=== PATIENT | male | born 1970 | race Caucasian/White ===

== ENCOUNTER 2017-08-13 13:28 | Inpatient (IN) | payer OTHER ==
[2017-08-13 15:45] VITALS: BMI 27.0
--- NOTE | 2017-08-13 17:00 | HP ---
CIWA Score - CIWA Score Nausea/Vomitin-Mild Nausea/No Vomiting Muscle Tremors: 4-Moderate,w/Arms Extend Anxiety: 4-Mod. Anxious/Guarded Agitation: 4-Moderately Restless Paroxysmal Sweats: 1-Minimal Palms Moist Orientation: 0-Oriented Tacttile Disturbances: 0-None Auditory Disturbances: 0-None Visual Disturbances: 0-None Headache: 0-None Present CIWA-Ar Total Score: 14 Admission ROS BHS - HPI Chief Complaint: WITHDRAWAL SX ALCOHOL INTOXICATED "TWO WEEKS AGO", TREATED AT [facility], LEFT FORE HEAD STITCHES REMOVED 08/10/17 RECEIVED LIBRIUM Allergies/Adverse Reactions: Allergies Allergy/AdvReac Type Severity Reaction Status Date / Time No Known Allergies Allergy Verified 08/13/17 17:06 History of Present Illness: 47 YEARS OLD MALE WITH LONG HISTORY OF ALCOHOL DEPENDENCE, HAS HYPERTENSION AND BIPOLAR II IS ADMITTED TO DETOX Exam Limitations: No Limitations - Ebola screening Have you traveled outside of the country in the last 21 days: No Have you had contact with anyone from an Ebola affected area: No Have you been sick,other than usual withdrawal symptoms: No Do you have a fever: No - Review of Systems Constitutional: Changes in sleep, Weight Stable EENT: reports: No Symptoms Reported Respiratory: reports: No Symptoms reported Cardiac: reports: No Symptoms Reported GI: reports: Nausea, Poor Fluid Intake, Abdominal cramping : reports: No Symptoms Reported Musculoskeletal: reports: Back Pain (TRAUMA X "YEARS"), Joint Pain, Muscle Pain Integumentary: reports: No Symptoms Reported Neuro: reports: Seizure (2012 ALCOHOL WITHDRAWAL RELATED), Tremors Endocrine: reports: No Symptoms Reported Hematology: reports: No Symptoms Reported Psychiatric: reports: Judgement Intact, Orientated x3, Anxious, Depressed Other Systems: Reviewed and Negative Patient History - Patient Medical History Hx Anemia: No Hx Asthma: No Hx Chronic Obstructive Pulmonary Disease (COPD): No Hx Cancer: No Hx Cardiac Disorders: Yes (A FIB) Hx Congestive Heart Failure: No Hx Hypertension: No Hx Hypercholesterolemia: No Hx Pacemaker: No HX Cerebrovascular Accident: No Hx Seizures: Yes (LAST EPISODE 2011) Hx Dementia: No Hx Diabetes: No Hx Gastrointestinal Disorders: No Hx Liver Disease: No Hx Genitourinary Disorders: No Hx Sexually Transmitted Disorders: No Hx Renal Disease (ESRD): No Hx Thyroid Disease: No Hx Human Immunodeficiency Virus (HIV): No (NEGATIVE HX) Hx Hepatitis C: No Hx Depression: No Hx Suicide Attempt: No Hx Bipolar Disorder: Yes Hx Schizophrenia: No - Patient Surgical History Past Surgical History: Yes Hx Neurologic Surgery: No Hx Cataract Extraction: No Hx Cardiac Surgery: No Hx Lung Surgery: Yes (fx RIGHT ribs with pnuemothorax s/p RIGHT chest tube) Hx Breast Surgery: No Hx Breast Biopsy: No Hx Abdominal Surgery: No Hx Appendectomy: No Hx Cholecystectomy: No Hx Genitourinary Surgery: No Hx Orthopedic Surgery: No Anesthesia Reaction: No - PPD History Previous Implant?: Yes Documented Results: Negative w/o proof Implanted On Prior [facility] Admission?: Yes Date: 08/11/15 Results: 0 MM PPD to be Administered?: Yes - Smoking Cessation Smoking history: Former smoker Have you smoked in the past 12 months: No Aproximately how many cigarettes per day: 0 Cigars Per Day: 2 Hx Chewing Tobacco Use: No Initiated information on smoking cessation: Yes 'Breaking Loose' booklet given: 08/13/17 - Substance & Tx. History Hx Alcohol Use: Yes Hx Substance Use: No Substance Use Type: Alcohol Hx Substance Use Treatment: Yes (07/05-07/06/16 [facility] - Substances Abused Alcohol Route: Oral Frequency: Daily Age of first use: 16 Date of Last Use: 08/12/17 Alcohol-beer Route: Oral Frequency: Daily Amount used: 8-10 (24 oz.) Age of first use: 17 Date of Last Use: 08/12/17 Family Disease History - Family Disease History Family Disease History: Heart Disease: Father (atrial fibrillation), CA: Mother (lung cancer ), Other: Mother, Brother (alcohol,) Admission Physical Exam S - Vital Signs Vital Signs: Vital Signs - 24 hr 08/13/17 15:43 Temperature 98.1 F Pulse Rate 90 Respiratory 20 Rate Blood Pressure 116/70 - Physical General Appearance: Yes: Appropriately Dressed, Mild Distress, Alcohol on Breath , Tremorous, Irritable, Sweating, Anxious HEENTM: Yes: Hearing grossly Normal, Normal ENT Inspection, Normocephalic, Normal Voice Respiratory: Yes: Chest Non-Tender, Lungs Clear, Normal Breath Sounds, No Respiratory Distress, No Accessory Muscle Use Neck: Yes: Supple, Trachea in good position Breast: Yes: Breasts Symetrical Cardiology: Yes: Regular Rhythm, S1, S2, Tachycardia Abdominal: Yes: Normal Bowel Sounds, Non Tender, Soft Genitourinary: Yes: Within Normal Limits Back: Yes: Normal Inspection, Muscle Spasm Musculoskeletal: Yes: full range of Motion, Gait Steady, Back pain, Muscle Pain Extremities: Yes: Normal Inspection, Normal Range of Motion, Non-Tender, Tremors Neurological: Yes: Fully Oriented, Alert, Motor Strength 5/5, Normal Response, Depressed Affect Integumentary: Yes: Warm Lymphatic: Yes: Within Normal Limits - Diagnostic (1) Alcohol dependence with uncomplicated withdrawal Current Visit: Yes Status: Acute (2) Nicotine dependence Current Visit: Yes Status: Acute Qualifiers: Nicotine product type: cigarettes Substance use status: in withdrawal Qualified Code(s): F17.213 - Nicotine dependence, cigarettes, with withdrawal (3) Hypertension Current Visit: Yes Status: Acute Qualifiers: Hypertension type: essential hypertension Qualified Code(s): I10 - Essential (primary) hypertension (4) Bipolar II disorder Current Visit: Yes Status: Suspected (5) Atrial fibrillation Current Visit: Yes Status: Chronic Qualifiers: Atrial fibrillation type: unspecified Qualified Code(s): I48.91 - Unspecified atrial fibrillation Comment: ASPIRIN (6) Chronic back pain Current Visit: Yes Status: Chronic Qualifiers: Back pain location: low back pain Back pain laterality: bilateral Sciatica presence: without sciatica Qualified Code(s): M54.5 - Low back pain; G89.29 - Other chronic pain [facility] for [facility] of Care: Medically Managed Detox Regimen/Protocol: Librium [facility] Breath Alcohol Content Breath Alcohol Content: 0.224 Urine Drug Screen - Control Is Test Valid: Yes - Results Drug Screen Negative: No Urine Drug Screen Results: THC-Marijuana, BZO-Benzodiazepines
[2017-08-13] MEDS ORDERED: P-EPHED 60MG/TRIPROLIDI 2.5MG TABLET PO PRN (17:23)
[2017-08-13] MEDS ORDERED: ACETAMINOPHEN 325 MG TABLET (FP) PO PRN (17:23)
[2017-08-13] MEDS ORDERED: NICOTINE POLACRILEX 2 MG GUM BC PRN (17:23)
[2017-08-13] MEDS ORDERED: MAGNESIUM HYDROX 2400MG/30ML ORAL SUSPENSION 30 ML CUP PO PRN (17:23)
[2017-08-13] MEDS ORDERED: MAGNESIUM CITRATE 300 ML BOTTLE PO PRN (17:23)
[2017-08-13] MEDS ORDERED: LOPERAMIDE HCL 2 MG CAPSULE PO PRN (17:23)
[2017-08-13] MEDS ORDERED: MAG HYDROX/AL HYDROX/SIMETH 30 ML UNIT-DOSE CUP PO PRN (17:23)
[2017-08-13] MEDS ORDERED: MENTHOL/PHENOL 1 EACH UD MM PRN (17:23)
[2017-08-13] MEDS ORDERED: guaiFENesin/D-METHORPHAN HB 10 ML UNIT-DOSE CUPS PO PRN (17:23)
[2017-08-13] MEDS ORDERED: chlordiazePOXIDE HCL 25 MG CAPSULE PO PRN (17:23)
[2017-08-13] MEDS ORDERED: chlordiazePOXIDE HCL 25 MG CAPSULE PO ONE (18:30)
[2017-08-13] MEDS: BACITRACIN 0.9 GM PACKET TP SCH (22:31)
[2017-08-13] MEDS: METHOCARBAMOL 750 MG TABLET PO SCH (22:32)
[2017-08-13] MEDS: THIAMINE HCL 100 MG TABLET (FP) PO SCH (22:32)
[2017-08-13] MEDS: chlordiazePOXIDE HCL 25 MG CAPSULE PO SCH (22:32)
[2017-08-13] MEDS: diphenhydrAMINE HCL 50 MG CAPSULE PO PRN (22:34)
[2017-08-13 23:23] LABS: URINE APPEARANCE CLEAR; URINE BILIRUBIN NEGATIVE (NEGATIVE); URINE BLOOD NEGATIVE (NEGATIVE); URINE COLOR STRAW; URINE GLUCOSE (UA) NEGATIVE (NEGATIVE); URINE KETONE NEGATIVE (NEGATIVE); URINE LEUK ESTERASE NEGATIVE (NEGATIVE); URINE NITRITE NEGATIVE (NEGATIVE); URINE PROTEIN NEGATIVE (NEGATIVE); URINE UROBILINOGEN NEGATIVE mg/dL (0.2-1.0)
[2017-08-14] MEDS: METHOCARBAMOL 750 MG TABLET PO SCH ×3 (05:53→22:43)
[2017-08-14] MEDS: chlordiazePOXIDE HCL 25 MG CAPSULE PO SCH ×4 (05:53→22:43)
[2017-08-14] MEDS ORDERED: METOPROLOL SUCCINATE 100 MG TAB.SR.24H (FP) PO SCH (10:00)
[2017-08-14 10:08] LABS: MCHC 33.4 g/dl (32.0-35.9); MEAN CELL VOLUME 101.9 fl (80-96); MEAN PLT VOLUME 9.5 fl (7.5-11.1); PLATELET COUNT 156 K/MM3 (134-434); RDW 14.1 % (11.9-15.9); WHITE BLOOD COUNT 4.6 K/mm3 (4.0-10.0)
--- NOTE | 2017-08-14 10:17 | CONSULT ---
[facility] Psychiatric Consult - Data Date of interview: 08/14/17 Admission source: [facility] Identifying data: Kaylah is 47 years old male with no psychiatric hospitalization history intoxicated with: Alcoho, Xanax nd Nicotine Substance Abuse History: - Smoking Cessation. Smoking history: Former smoker. Have you smoked in the past 12 months: No. Aproximately how many cigarettes per day: 0. Cigars Per Day: 2. Hx Chewing Tobacco Use: No. Initiated information on smoking cessation: Yes. 'Breaking Loose' booklet given: . - Substance & Tx. History. Hx Alcohol Use: Yes. Hx Substance Use: No. Substance Use Type: Alcohol. Hx Substance Use Treatment: Yes (07/05-07/06/16 [facility] [place] - Substances Abused. Alcohol. Route: Oral. Frequency: Daily. Age of first use: 16. Date of Last Use: 08/12/17. Alcohol-beer. Route: Oral. Frequency: Daily. Amount used: 8-10 (24 oz.). Age of first use: 17. Date of Last Use: 08/12/17 Medical History: HTN, A.Fib Hisotyr, Right Hip injury Psychiatric History: Patient reprot to carry Bipoloar disorder, reports taqkingn prior to admission: Seroquel 200mg po qhs. Remeron 30mg po qhs. Buspar 15mg po tids Physical/Sexual Abuse/Trauma History: Denies Additional Comment: Seroquel 200mg po qhs. Remeron 30mg po qhs. Buspar 15mg po tids Mental Status Exam - Mental Status Exam Alert and Oriented to: Person Cognitive Function: Fair Patient Appearance: Unkempt Mood: Apprehensive Affect: Mood Congruent Patient Behavior: Cooperative Speech Pattern: Appropriate Voice Loudness: Normal Thought Process: Goal Oriented Thought Disorder: Being Controlled Hallucinations: Denies Suicidal Ideation: Denies Homicidal Ideation: Denies Insight/Judgement: Fair Sleep: Difficulty falling asleep Appetite: Weight gain Muscle strength/Tone: Normal Gait/Station: Normal Additional Comments: Seroquel 200mg po qhs. Remeron 30mg po qhs. Buspar 15mg po tids Psychiatric Findings - Problem List ([place] 1, 2,3) (1) Alcohol dependence with uncomplicated withdrawal Current Visit: Yes Status: Acute (2) Nicotine dependence Current Visit: Yes Status: Acute Qualifiers: Nicotine product type: cigarettes Substance use status: in withdrawal Qualified Code(s): F17.213 - Nicotine dependence, cigarettes, with withdrawal (3) Bipolar II disorder Current Visit: Yes Status: Suspected (4) Benzodiazepine dependence Current Visit: No Status: Acute (5) Drug-induced mood disorder Current Visit: No Status: Acute (6) Substance-induced sleep disorder Current Visit: No Status: Acute (7) Cannabis dependence Current Visit: No Status: Chronic (8) Sedative, hypnotic or anxiolytic dependence with withdrawal, uncomplicated Current Visit: No Status: Chronic - Initial Treatment Plan Initial Treatment Plan: Seroquel 200mg po qhs. Remeron 30mg po qhs. Buspar 15mg po tids
[2017-08-14] MEDS: ASPIRIN 81 MG CHEWABLE TABLETS PO SCH (10:33)
[2017-08-14] MEDS: PRENATAL VITAMINS W/ FOLIC ACID TABLET (FP) PO SCH (10:33)
[2017-08-14 10:34] LABS: ALK PHOS 68 U/L (45-117); ANION GAP 4 (8-16); CALCIUM 9.1 mg/dL (8.5-10.1); CO2 30 mmol/L (21-32); CREATININE 0.8 mg/dL (0.7-1.3); GLUCOSE,RANDOM 93 mg/dL (74-106); SGOT/AST 35 U/L (15-37); SGPT/ALT 55 U/L (12-78); TOT PROT 5.8 g/dl (6.4-8.2)
[2017-08-14] MEDS: NICOTINE 14 MG/24 HOURS TOPICAL PATCH TD SCH (10:34)
--- NOTE | 2017-08-14 10:35 | EKG ---
Test Reason : Blood Pressure : / mmHG Vent. Rate : 132 BPM Atrial Rate : 111 BPM P-R Int : 000 ms QRS Dur : 096 ms QT Int : 320 ms P-R-T Axes : 000 053 057 degrees QTc Int : 474 ms ATRIAL FIBRILLATION WITH RAPID VENTRICULAR RESPONSE INCOMPLETE RIGHT BUNDLE BRANCH BLOCK ABNORMAL ECG NO PREVIOUS ECGS AVAILABLE Confirmed by PARESH MG MD ([id number]) on 08/14/2017 10:34:42 AM Referred By: Confirmed By:PARESH MG MD
--- NOTE | 2017-08-14 12:33 | PN ---
[facility] CIWA - CIWA Score Nausea/Vomitin-No Nausea/No Vomiting Muscle Tremors: 4-Moderate,w/Arms Extend Anxiety: 4-Mod. Anxious/Guarded Agitation: 4-Moderately Restless Paroxysmal Sweats: 1-Minimal Palms Moist Orientation: 0-Oriented Tacttile Disturbances: 3-Moderate Itch/Numb/Burn Auditory Disturbances: 0-None Visual Disturbances: 0-None Headache: 0-None Present CIWA-Ar Total Score: 16 S Progress Note (SOAP) Subjective: ANXIETY,TREMORS,SWEATS,INTERMITTENT SLEEP. Objective: 08/14/17 12:32 Vital Signs Temperature 96.4 F L 08/14/17 09:33 Pulse Rate 97 H 08/14/17 09:33 Respiratory Rate 18 08/14/17 09:33 Blood Pressure 123/79 08/14/17 09:33 O2 Sat by Pulse Oximetry (%) Laboratory Last Values WBC 4.6 K/mm3 (4.0-10.0) D 08/14/17 07:00 RBC 4.23 M/mm3 (4.00-5.60) 08/14/17 07:00 Hgb 14.4 GM/dL (11.7-16.9) D 08/14/17 07:00 Hct 43.0 % (35.4-49) 08/14/17 07:00 MCV 101.9 fl (80-96) H 08/14/17 07:00 MCH 34.0 pg (25.7-33.7) H 08/14/17 07:00 MCHC 33.4 g/dl (32.0-35.9) 08/14/17 07:00 RDW 14.1 % (11.9-15.9) 08/14/17 07:00 Plt Count 156 K/MM3 (134-434) D 08/14/17 07:00 MPV 9.5 fl (7.5-11.1) 08/14/17 07:00 Sodium 141 mmol/L (136-145) 08/14/17 07:00 Potassium 3.9 mmol/L (3.5-5.1) 08/14/17 07:00 Chloride 107 mmol/L (98-107) 08/14/17 07:00 Carbon Dioxide 30 mmol/L (21-32) 08/14/17 07:00 Anion Gap 4 (8-16) L 08/14/17 07:00 BUN 9 mg/dL (7-18) 08/14/17 07:00 Creatinine 0.8 mg/dL (0.7-1.3) 08/14/17 07:00 Creat Clearance w eGFR > 60 (>60) 08/14/17 07:00 Random Glucose 93 mg/dL (74-106) 08/14/17 07:00 Calcium 9.1 mg/dL (8.5-10.1) 08/14/17 07:00 Total Bilirubin 1.0 mg/dL (0.2-1.0) D 08/14/17 07:00 AST 35 U/L (15-37) 08/14/17 07:00 ALT 55 U/L (12-78) D 08/14/17 07:00 Alkaline Phosphatase 68 U/L (45-117) 08/14/17 07:00 Total Protein 5.8 g/dl (6.4-8.2) L 08/14/17 07:00 Albumin 3.0 g/dl (3.4-5.0) L 08/14/17 07:00 Urine Color Straw 08/13/17 22:35 Urine Appearance Clear 08/13/17 22:35 Urine pH 6.0 (5.0-8.0) 08/13/17 22:35 Ur Specific [place] <= 1.005 (1.005-1.025) 08/13/17 22:35 Urine Protein Negative (NEGATIVE) 08/13/17 22:35 Urine Glucose (UA) Negative (NEGATIVE) 08/13/17 22:35 Urine Ketones Negative (NEGATIVE) 08/13/17 22:35 Urine Blood Negative (NEGATIVE) 08/13/17 22:35 Urine Nitrite Negative (NEGATIVE) 08/13/17 22:35 Urine Bilirubin Negative (NEGATIVE) 08/13/17 22:35 Urine Urobilinogen Negative mg/dL (0.2-1.0) 08/13/17 22:35 Assessment: 08/14/17 12:32 WITHDRAWAL SX Plan: CONTINUE DETOX
[2017-08-14] MEDS ORDERED: MIRTAZAPINE 30 MG TABLET (FP) PO SCH (22:00)
[2017-08-14] MEDS ORDERED: QUEtiapine FUMARATE 200 MG TABLET PO SCH (22:00)
[2017-08-14] MEDS: BACITRACIN 0.9 GM PACKET TP SCH (22:42)
[2017-08-14] MEDS: METOPROLOL TARTRATE 50 MG TABLET (FP) PO SCH (22:42)
[2017-08-14] MEDS: THIAMINE HCL 100 MG TABLET (FP) PO SCH (22:42)
[2017-08-14] MEDS: diphenhydrAMINE HCL 50 MG CAPSULE PO PRN (22:43)
[2017-08-15] MEDS: hydrOXYzine PAMOATE 50 MG CAPSULE (FP) PO PRN ×2 (02:33→10:37)
[2017-08-15] MEDS: METHOCARBAMOL 750 MG TABLET PO SCH (05:15)
[2017-08-15] MEDS: chlordiazePOXIDE HCL 25 MG CAPSULE PO SCH ×2 (05:15→10:35)
[2017-08-15 09:49] VITALS: BP 101/70; PULSE 68; TEMP 98.7
[2017-08-15] MEDS: ASPIRIN 81 MG CHEWABLE TABLETS PO SCH (10:34)
[2017-08-15] MEDS: PRENATAL VITAMINS W/ FOLIC ACID TABLET (FP) PO SCH (10:34)
[2017-08-15] MEDS: METOPROLOL TARTRATE 50 MG TABLET (FP) PO SCH (10:35)
[2017-08-15] MEDS: NICOTINE 14 MG/24 HOURS TOPICAL PATCH TD SCH (10:36)
--- NOTE | 2017-08-15 12:05 | DS ---
[facility] Detox Discharge Summary Admission Date: 08/13/17 Discharge Date: 08/15/17 - History Present History: Alcohol Dependence Additional Comments: PT DECLINED TO COMPLETE DETOX STATING "I'M GOING TO [facility] NOW". Pertinent Past History: HX SEIZURES HX ATRIAL FIB HYPERTENSION - Physical Exam Results Vital Signs: Vital Signs Temperature 98.7 F 08/15/17 09:49 Pulse Rate 68 08/15/17 09:49 Respiratory Rate 20 08/15/17 09:49 Blood Pressure 101/70 08/15/17 09:49 O2 Sat by Pulse Oximetry (%) Pertinent Admission Physical Exam Findings: WITHDRAWAL SX Laboratory Last Values WBC 4.6 K/mm3 (4.0-10.0) D 08/14/17 07:00 RBC 4.23 M/mm3 (4.00-5.60) 08/14/17 07:00 Hgb 14.4 GM/dL (11.7-16.9) D 08/14/17 07:00 Hct 43.0 % (35.4-49) 08/14/17 07:00 MCV 101.9 fl (80-96) H 08/14/17 07:00 MCH 34.0 pg (25.7-33.7) H 08/14/17 07:00 MCHC 33.4 g/dl (32.0-35.9) 08/14/17 07:00 RDW 14.1 % (11.9-15.9) 08/14/17 07:00 Plt Count 156 K/MM3 (134-434) D 08/14/17 07:00 MPV 9.5 fl (7.5-11.1) 08/14/17 07:00 Sodium 141 mmol/L (136-145) 08/14/17 07:00 Potassium 3.9 mmol/L (3.5-5.1) 08/14/17 07:00 Chloride 107 mmol/L (98-107) 08/14/17 07:00 Carbon Dioxide 30 mmol/L (21-32) 08/14/17 07:00 Anion Gap 4 (8-16) L 08/14/17 07:00 BUN 9 mg/dL (7-18) 08/14/17 07:00 Creatinine 0.8 mg/dL (0.7-1.3) 08/14/17 07:00 Creat Clearance w eGFR > 60 (>60) 08/14/17 07:00 Random Glucose 93 mg/dL (74-106) 08/14/17 07:00 Calcium 9.1 mg/dL (8.5-10.1) 08/14/17 07:00 Total Bilirubin 1.0 mg/dL (0.2-1.0) D 08/14/17 07:00 AST 35 U/L (15-37) 08/14/17 07:00 ALT 55 U/L (12-78) D 08/14/17 07:00 Alkaline Phosphatase 68 U/L (45-117) 08/14/17 07:00 Total Protein 5.8 g/dl (6.4-8.2) L 08/14/17 07:00 Albumin 3.0 g/dl (3.4-5.0) L 08/14/17 07:00 Urine Color Straw 08/13/17 22:35 Urine Appearance Clear 08/13/17 22:35 Urine pH 6.0 (5.0-8.0) 08/13/17 22:35 Ur Specific [place] <= 1.005 (1.005-1.025) 08/13/17 22:35 Urine Protein Negative (NEGATIVE) 08/13/17 22:35 Urine Glucose (UA) Negative (NEGATIVE) 08/13/17 22:35 Urine Ketones Negative (NEGATIVE) 08/13/17 22:35 Urine Blood Negative (NEGATIVE) 08/13/17 22:35 Urine Nitrite Negative (NEGATIVE) 08/13/17 22:35 Urine Bilirubin Negative (NEGATIVE) 08/13/17 22:35 Urine Urobilinogen Negative mg/dL (0.2-1.0) 08/13/17 22:35 Valproic Acid 5.081 ug/ml (50-100) L 08/14/17 07:00 RPR Titer Nonreactive (NONREACTIVE) 08/14/17 07:00 - Treatment Hospital Course: Discharged Condition Good - Medication Discharge Medications: Ambulatory Orders Aspirin [ASA -] 81 mg PO DAILY #30 tab.chew 10/08/15 Methocarbamol [Robaxin -] 750 mg PO TID 01/29/16 Metoprolol Succinate [Toprol XL -] 100 mg PO DAILY 01/29/16 Quetiapine Fumarate [Seroquel -] 200 mg PO HS #30 tab 03/17/16 Buspirone HCl [Buspar -] 15 mg PO TID #90 tablet 04/26/16 Mirtazapine [Remeron -] 30 mg PO HS #30 tablet 04/26/16 Buspirone HCl [Buspar -] 15 mg PO TID #90 tablet 08/14/17 Mirtazapine [Remeron -] 30 mg PO HS #30 tablet 08/14/17 Quetiapine Fumarate [Seroquel -] 200 mg PO HS #30 tab 08/14/17 - Diagnosis (1) Alcohol dependence with uncomplicated withdrawal Status: Acute (2) Hypertension Status: Chronic Qualifiers: Hypertension type: essential hypertension Qualified Code(s): I10 - Essential (primary) hypertension (3) Nicotine dependence Status: Acute Qualifiers: Nicotine product type: cigarettes Substance use status: in withdrawal Qualified Code(s): F17.213 - Nicotine dependence, cigarettes, with withdrawal (4) Atrial fibrillation Status: Chronic Qualifiers: Atrial fibrillation type: unspecified Qualified Code(s): I48.91 - Unspecified atrial fibrillation (5) Chronic back pain Status: Chronic Qualifiers: Back pain location: low back pain Back pain laterality: bilateral Sciatica presence: without sciatica Qualified Code(s): M54.5 - Low back pain; G89.29 - Other chronic pain - AMA Did Patient Leave Against Medical Advice: Yes (AMA)
[2017-08-15] MEDS ORDERED: chlordiazePOXIDE 5 MG CAPSULE PO SCH (23:00)
[2017-08-16] MEDS ORDERED: chlordiazePOXIDE HCL 10 MG CAPSULE PO SCH (23:00)
== END 2017-08-15 11:17 | disposition left against medical advice (07) | DRG 861 ==
LOC: YASAS 13:28 → Y3N 17:36
PROVIDERS: ADMIT Internal Medicine; ATTEND Internal Medicine
PROC: HZ2ZZZZ Detoxification Services for Substance Abuse Treatment (ICD-10-PCS; principal; 2017-08-13)
DX: G89.29 Other chronic pain (principal); F13.230 Sedative, hypnotic or anxiolytic dependence with withdrawal, uncomplicated; F10.230 Alcohol dependence with withdrawal, uncomplicated; F12.20 Cannabis dependence, uncomplicated; F17.213 Nicotine dependence, cigarettes, with withdrawal; F31.81 Bipolar II disorder; F19.282 Other psychoactive substance dependence with psychoactive substance-induced sleep disorder; I10 Essential (primary) hypertension; I48.91 Unspecified atrial fibrillation; G40.509 Epileptic seizures related to external causes, not intractable, without status epilepticus; M54.5 Low back pain
CPT/HCPCS: 36415; 80053; 80164; 81003; 85027; 86593; 93005; 93010

== ENCOUNTER 2017-12-01 15:08 | Inpatient (IN) | payer OTHER ==
--- NOTE | 2017-12-01 15:26 | HP ---
CIWA Score - CIWA Score Nausea/Vomitin Muscle Tremors: 3 Anxiety: 3 Agitation: 3 Paroxysmal Sweats: 2 Orientation: 0-Oriented Tacttile Disturbances: 2-Mild Itch/Numbness/Burn Auditory Disturbances: 2-Mild Harshness/Frighten Visual Disturbances: 1-Very Mild Sensitivity Headache: 2-Mild CIWA-Ar Total Score: 21 Admission ROS BHS - HPI Chief Complaint: i need help to stop drinking alcohol and xanax Allergies/Adverse Reactions: Allergies Allergy/AdvReac Type Severity Reaction Status Date / Time No Known Allergies Allergy Verified 12/01/17 15:44 History of Present Illness: this 47years old male with alcohol and xanax dependence,seeking detox,last detox [facility] 08/11 syncope alcohol related seizure last 2 years ago history of atrial fibrillation for 4 years on metoprolol 50 mgs po bid and asa 81 mgs longest period of sobriety 2 months anxiety fell from height 8th story in 2011 admitted for 3 months - Ebola screening Have you traveled outside of the country in the last 21 days: No Have you had contact with anyone from an Ebola affected area: No Have you been sick,other than usual withdrawal symptoms: No Do you have a fever: No - Review of Systems Constitutional: Loss of Appetite, Malaise, Night Sweats, Changes in sleep, Weakness EENT: reports: Nose Congestion Respiratory: reports: No Symptoms reported Cardiac: reports: No Symptoms Reported GI: reports: Diarrhea, Nausea, Vomiting, Abdominal cramping : reports: No Symptoms Reported Musculoskeletal: reports: Back Pain, Muscle Pain Integumentary: reports: Dryness Neuro: reports: Headache, Tremors Endocrine: reports: No Symptoms Reported Hematology: reports: No Symptoms Reported Psychiatric: reports: Anxious Patient History - Patient Medical History Hx Anemia: No Hx Asthma: No Hx Chronic Obstructive Pulmonary Disease (COPD): No Hx Cancer: No Hx Cardiac Disorders: Yes (A FIB) Hx Congestive Heart Failure: No Hx Hypertension: No Hx Hypercholesterolemia: No Hx Pacemaker: No HX Cerebrovascular Accident: No Hx Seizures: Yes (LAST EPISODE 2011) Hx Dementia: No Hx Diabetes: No Hx Gastrointestinal Disorders: No Hx Liver Disease: No Hx Genitourinary Disorders: No Hx Sexually Transmitted Disorders: No Hx Renal Disease (ESRD): No Hx Thyroid Disease: No Hx Human Immunodeficiency Virus (HIV): No (NEGATIVE HX last 09/10) Hx Hepatitis C: No Hx Depression: No Hx Suicide Attempt: No Hx Bipolar Disorder: Yes Hx Schizophrenia: No Other Medical History: no suicidal,no homicidal - Patient Surgical History Past Surgical History: Yes Hx Neurologic Surgery: No Hx Cataract Extraction: No Hx Cardiac Surgery: No Hx Lung Surgery: Yes (fx RIGHT ribs with pnuemothorax s/p RIGHT chest tube) Hx Breast Surgery: No Hx Breast Biopsy: No Hx Abdominal Surgery: No Hx Appendectomy: No Hx Cholecystectomy: No Hx Genitourinary Surgery: No Hx Section: No Hx Orthopedic Surgery: No Anesthesia Reaction: No - PPD History Documented Results: Negative w/proof Date: 08/15/17 Results: 0 MM PPD to be Administered?: No - Smoking Cessation Smoking history: Former smoker Have you smoked in the past 12 months: No Aproximately how many cigarettes per day: 0 Cigars Per Day: 2 Hx Chewing Tobacco Use: No Initiated information on smoking cessation: Yes 'Breaking Loose' booklet given: 12/01/17 - Substance & Tx. History Hx Alcohol Use: Yes Hx Substance Use: Yes Substance Use Type: Alcohol, Tranquilizers Hx Substance Use Treatment: Yes ([facility] 09/10) - Substances Abused Alcohol Route: Oral Frequency: Daily Amount used: 10 of 24 ozs of beer Age of first use: 16 Date of Last Use: 12/01/17 Alprazolam (Xanax) Route: Oral Frequency: Daily Amount used: 6 mgs Age of first use: 17 Date of Last Use: 11/30/17 Marijuana/Hashish Route: Smoking Frequency: 1-2 times per week Amount used: 50$ Age of first use: 15 Date of Last Use: 11/29/17 Family Disease History - Family Disease History Family Disease History: Heart Disease: Father (atrial fibrillation), CA: Mother (lung cancer ), Other: Mother, Brother (alcohol,) Admission Physical Exam S - Vital Signs Vital Signs: Vital Signs - 24 hr 12/01/17 15:11 Temperature 95.2 F L Pulse Rate 100 H Respiratory 18 Rate Blood Pressure 132/75 - Physical General Appearance: Yes: Moderate Distress, Tremorous, Irritable, Sweating, Anxious HEENTM: Yes: Normal ENT Inspection, RUB[place], Pharynx Normal Respiratory: Yes: Lungs Clear, Normal Breath Sounds, No Respiratory Distress, Other (s/p pneumothorax right post fell from height) Neck: Yes: Within Normal Limits, Supple, Trachea in good position Breast: Yes: Within Normal Limits Cardiology: Yes: Within Normal Limits, Regular Rhythm, Regular Rate, S1, S2 Abdominal: Yes: Within Normal Limits, Normal Bowel Sounds, Non Tender, Flat, Soft Genitourinary: Yes: Within Normal Limits Back: Yes: Muscle Spasm Musculoskeletal: Yes: Back pain, Muscle Pain Extremities: Yes: Tremors Neurological: Yes: avionics systems repairer II-XII NML intact, Alert, Motor Strength 5/5 Integumentary: Yes: Dry Lymphatic: Yes: Within Normal Limits - Diagnostic (1) Alcohol dependence with uncomplicated withdrawal Current Visit: No Status: Acute (2) Nicotine dependence Current Visit: No Status: Acute Qualifiers: Nicotine product type: cigarettes Substance use status: in withdrawal Qualified Code(s): F17.213 - Nicotine dependence, cigarettes, with withdrawal (3) Atrial fibrillation Current Visit: No Status: Chronic Qualifiers: Atrial fibrillation type: unspecified Qualified Code(s): I48.91 - Unspecified atrial fibrillation Comment: ASPIRIN (4) Chronic back pain Current Visit: No Status: Chronic Qualifiers: Back pain location: low back pain Back pain laterality: bilateral Sciatica presence: without sciatica Qualified Code(s): M54.5 - Low back pain; G89.29 - Other chronic pain; G89.29 - Other chronic pain (5) Uncomplicated sedative, hypnotic or anxiolytic withdrawal Current Visit: Yes Status: Acute (6) Anxiety Current Visit: Yes Status: Acute (7) Fall from height of greater than 3 feet Current Visit: Yes Status: Acute (8) History of head injury Current Visit: Yes Status: Acute (9) Bipolar disorder Current Visit: Yes Status: Acute Cleared for Admission [facility] - Detox or Rehab [facility] Level of Care: Medically Managed Detox Regimen/Protocol: Valium [facility] Breath Alcohol Content Breath Alcohol Content: 0 Urine Drug Screen - Results Drug Screen Negative: No Urine Drug Screen Results: THC-Marijuana, BZO-Benzodiazepines
[2017-12-01] MEDS ORDERED: P-EPHED 60MG/TRIPROLIDI 2.5MG TABLET PO PRN (15:43)
[2017-12-01] MEDS ORDERED: LOPERAMIDE HCL 2 MG CAPSULE PO PRN (15:43)
[2017-12-01] MEDS ORDERED: guaiFENesin/D-METHORPHAN HB 10 ML UNIT-DOSE CUPS PO PRN (15:43)
[2017-12-01] MEDS ORDERED: IBUPROFEN 400 MG TABLET (FP) PO PRN (15:43)
[2017-12-01] MEDS ORDERED: diazePAM 5 MG TABLET PO ONE (15:43)
[2017-12-01] MEDS ORDERED: MAG HYDROX/AL HYDROX/SIMETH 30 ML UNIT-DOSE CUP PO PRN (15:43)
[2017-12-01] MEDS ORDERED: MAGNESIUM HYDROX 2400MG/30ML ORAL SUSPENSION 30 ML CUP PO PRN (15:43)
[2017-12-01] MEDS ORDERED: MENTHOL/PHENOL 1 EACH UD MM PRN (15:43)
[2017-12-01] MEDS ORDERED: ACETAMINOPHEN 325 MG TABLET (FP) PO PRN (15:43)
[2017-12-01] MEDS ORDERED: diazePAM 5 MG TABLET PO PRN (15:43)
[2017-12-01] MEDS ORDERED: MAGNESIUM CITRATE 300 ML BOTTLE PO PRN (15:43)
[2017-12-01] MEDS ORDERED: hydrOXYzine PAMOATE 50 MG CAPSULE (FP) PO PRN (15:51)
[2017-12-01] MEDS: diazePAM 5 MG TABLET PO SCH (22:05)
[2017-12-01] MEDS: METHOCARBAMOL 500 MG TABLET PO SCH (22:05)
[2017-12-01] MEDS: THIAMINE HCL 100 MG TABLET (FP) PO SCH (22:05)
[2017-12-01] MEDS: METOPROLOL TARTRATE 50 MG TABLET (FP) PO SCH (22:06)
[2017-12-02] MEDS: diazePAM 5 MG TABLET PO SCH ×3 (06:01→22:09)
[2017-12-02] MEDS: METHOCARBAMOL 500 MG TABLET PO SCH ×2 (06:02→14:32)
[2017-12-02 10:07] LABS: HEMATOCRIT 49.2 % (35.4-49); MCH 32.3 pg (25.7-33.7); MCHC 32.5 g/dl (32.0-35.9); MEAN CELL VOLUME 99.5 fl (80-96); MEAN PLT VOLUME 9.7 fl (7.5-11.1); PLATELET COUNT 228 K/MM3 (134-434); RBC 4.94 M/mm3 (4.00-5.60); RDW 14.3 % (11.9-15.9); WHITE BLOOD COUNT 4.9 K/mm3 (4.0-10.0)
[2017-12-02 10:10] LABS: ALBUMIN 3.3 g/dl (3.4-5.0); ANION GAP 7 (8-16); BILIRUBIN,TOTAL 0.7 mg/dL (0.2-1.0); BLOOD UREA NITROGEN 6 mg/dL (7-18); CALCIUM 8.6 mg/dL (8.5-10.1); CHLORIDE 108 mmol/L (98-107); CO2 26 mmol/L (21-32); CREATININE 0.9 mg/dL (0.7-1.3); GLUCOSE,RANDOM 105 mg/dL (74-106); POTASSIUM 3.8 mmol/L (3.5-5.1); SGOT/AST 33 U/L (15-37); SGPT/ALT 28 U/L (12-78); SODIUM 141 mmol/L (136-145); TOT PROT 6.3 g/dl (6.4-8.2)
[2017-12-02 10:11] LABS: ALK PHOS 74 U/L (45-117)
[2017-12-02] MEDS: ASPIRIN 81 MG CHEWABLE TABLETS PO SCH (10:47)
[2017-12-02] MEDS: PRENATAL VITAMINS W/ FOLIC ACID TABLET (FP) PO SCH (10:47)
[2017-12-02] MEDS: METOPROLOL TARTRATE 50 MG TABLET (FP) PO SCH ×2 (10:47→22:10)
--- NOTE | 2017-12-02 11:33 | PN ---
S CIWA - CIWA Score Nausea/Vomitin Muscle Tremors: 4-Moderate,w/Arms Extend Anxiety: 4-Mod. Anxious/Guarded Agitation: 4-Moderately Restless Paroxysmal Sweats: 3 Orientation: 0-Oriented Tacttile Disturbances: 1-Very Mild Itch/Numbness Auditory Disturbances: 0-None Visual Disturbances: 0-None Headache: 1-Very Mild CIWA-Ar Total Score: 20 BHS Progress Note (SOAP) Subjective: Tremor, chills, sweating, anxious Objective: 12/02/17 11:31 Last Vital Signs Temp Pulse Resp BP Pulse Ox 97.9 F 89 18 104/70 12/02/17 11:03 12/02/17 11:03 12/02/17 11:03 12/02/17 11:03 Laboratory Tests 12/02/17 12/02/17 07:00 07:00 WBC 4.9 RBC 4.94 Hgb 16.0 D Hct 49.2 H MCV 99.5 H MCH 32.3 MCHC 32.5 RDW 14.3 Plt Count 228 D MPV 9.7 Sodium 141 Potassium 3.8 Chloride 108 H Carbon Dioxide 26 Anion Gap 7 L BUN 6 L D Creatinine 0.9 Creat Clearance w eGFR > 60 Random Glucose 105 Calcium 8.6 Total Bilirubin 0.7 D AST 33 ALT 28 D Alkaline Phosphatase 74 Total Protein 6.3 L Albumin 3.3 L Labs noted Assessment: 12/02/17 11:32 Withdrawal symptoms Plan: Continue detox Encouraged to drink more water for hydration
--- NOTE | 2017-12-02 12:33 | CONSULT ---
[facility] Psychiatric Consult - Data Date of interview: 12/02/17 Admission source: [facility] Identifying data: This is one of multiple admissions to [facility] for this 47 y/ o male seeking detox treatment on for alcohol,marihuana and xanax dependence.Patient is in a common-law relationship,no children,domiciled, unemployed and supported by spouse. Substance Abuse History: Confirmed by patient in this interview.See current [facility] report for details : Smoking history: Former smoker. Have you smoked in the past 12 months: No. Aproximately how many cigarettes per day: 0. Cigars Per Day: 2. Hx Chewing Tobacco Use: No. Initiated information on smoking cessation : Yes. 'Breaking Loose' booklet given: 12/01/17. - Substance & Tx. History. Hx Alcohol Use: Yes. Hx Substance Use: Yes. Substance Use Type: Alcohol, Tranquilizers. Hx Substance Use Treatment: Yes ([facility]ente 09/10). - Substances Abused. Alcohol. Route: Oral. Frequency: Daily. Amount used: 10 of 24 ozs of beer. Age of first use: 16. Date of Last Use: 12/01/17. Alprazolam (Xanax). Route: Oral. Frequency: Daily. Amount used: 6 mgs. Age of first use : 17. Date of Last Use: 11/30/17. Marijuana/Hashish. Route: Smoking. Frequency: 1-2 times per week. Amount used: 50$. Age of first use: 15. Date of Last Use: 11/29/17 Medical History: Hypertension and atrial fibrillation.Past history of pneumothorax,coma,fractured ribs from a job-related accident (fall from a seven stories high scaffold) in 2006. Psychiatric History: No reported history of psychiatric hospitalizations.Mr Chacon reports no psychiatric follow up care since the authorities arrested his psychiatrist a few months ago.He used to be prescribed remeron 30 mg/hs + seroquel 200 mg/hs + buspar 15 mg po tid.Has been off these medications " for a while." No history of suicide attempts. Physical/Sexual Abuse/Trauma History: Patient denies history of abuse. Additional Comment: Urine Drug Screen Results: THC-Marijuana, BZO- Benzodiazepines.Noted. Mental Status Exam - Mental Status Exam Alert and Oriented to: Time, Place, Person Cognitive Function: Good Patient Appearance: Unkempt, Disheveled Mood: Nervous, Withdrawn Affect: Mood Congruent, Constricted Patient Behavior: Fatigued, Appropriate, Cooperative Speech Pattern: Clear, Appropriate Voice Loudness: Normal Thought Process: Intact, Goal Oriented Thought Disorder: Not Present Hallucinations: Denies Suicidal Ideation: Denies Homicidal Ideation: Denies Insight/Judgement: Poor Sleep: Poorly, Difficulty falling asleep Appetite: Good Muscle strength/Tone: Normal Gait/Station: Normal Psychiatric Findings - Problem List ([place] 1, 2,3) (1) Alcohol dependence with uncomplicated withdrawal Current Visit: Yes Status: Acute (2) Uncomplicated sedative, hypnotic or anxiolytic withdrawal Current Visit: Yes Status: Acute (3) Cannabis dependence Current Visit: Yes Status: Acute (4) Nicotine dependence Current Visit: Yes Status: Acute Qualifiers: Nicotine product type: cigarettes Substance use status: in withdrawal Qualified Code(s): F17.213 - Nicotine dependence, cigarettes, with withdrawal (5) Drug-induced mood disorder Current Visit: Yes Status: Acute (6) Insomnia Current Visit: Yes Status: Acute - Initial Treatment Plan Initial Treatment Plan: Psychoeducation.Old records revisited.Sleep hygiene discussed.Detoxification in progress.Medications : seroquel 200 mg po hs + remeron 15 mg po hs + buspar 10 mg po tid.Side effects/benefits sre discussed with the patient.Mr Chacon has verbalized his agreement to this careplan.Observation.Medications verified via survey of pharmacy claims and telephone call to [facility] at [phone] (refills issued on 09/27/17 for seroquel,naltrexone,prazosin / last refill for buspar was in July 2017).
--- NOTE | 2017-12-02 12:46 | EKG ---
Test Reason : Blood Pressure : / mmHG Vent. Rate : 094 BPM Atrial Rate : 094 BPM P-R Int : 172 ms QRS Dur : 090 ms QT Int : 368 ms P-R-T Axes : 068 006 053 degrees QTc Int : 460 ms NORMAL SINUS RHYTHM SEPTAL INFARCT , AGE UNDETERMINED ABNORMAL ECG WHEN COMPARED WITH ECG OF 13-AUG-2017 18:33, SINUS RHYTHM HAS REPLACED ATRIAL FIBRILLATION T WAVE VARIATION VENT. RATE HAS DECREASED Confirmed by KAY TONG, FATOUMATA ([id number]) on 12/02/2017 12:46:00 PM Referred By: Confirmed By:FATOUMATA VILLANUEVA MD
[2017-12-02] MEDS: busPIRone HCL 10 MG TABLET (FP) PO SCH ×2 (14:32→22:09)
[2017-12-02] MEDS: QUEtiapine FUMARATE 200 MG TABLET PO SCH (22:09)
[2017-12-02] MEDS: THIAMINE HCL 100 MG TABLET (FP) PO SCH (22:09)
[2017-12-02] MEDS: METHOCARBAMOL 750 MG TAB PO SCH (22:09)
[2017-12-02] MEDS: MIRTAZAPINE 15 MG TABLET (FP) PO SCH (22:09)
[2017-12-03 05:08] LABS: URINE APPEARANCE CLEAR; URINE BLOOD NEGATIVE (NEGATIVE); URINE COLOR YELLOW; URINE GLUCOSE (UA) NEGATIVE (NEGATIVE); URINE KETONE NEGATIVE (NEGATIVE); URINE LEUK ESTERASE NEGATIVE (NEGATIVE); URINE NITRITE NEGATIVE (NEGATIVE); URINE PROTEIN NEGATIVE (NEGATIVE); URINE UROBILINOGEN NEGATIVE mg/dL (0.2-1.0)
[2017-12-03] MEDS: METHOCARBAMOL 750 MG TAB PO SCH ×3 (05:58→22:23)
[2017-12-03] MEDS: busPIRone HCL 10 MG TABLET (FP) PO SCH ×3 (05:58→22:23)
--- NOTE | 2017-12-03 12:12 | PN ---
S CIWA - CIWA Score Nausea/Vomitin-Mild Nausea/No Vomiting Muscle Tremors: 3 Anxiety: 4-Mod. Anxious/Guarded Agitation: 3 Paroxysmal Sweats: 3 Orientation: 0-Oriented Tacttile Disturbances: 1-Very Mild Itch/Numbness Auditory Disturbances: 0-None Visual Disturbances: 0-None Headache: 1-Very Mild CIWA-Ar Total Score: 16 BHS Progress Note (SOAP) Subjective: Nausea, sweating, tremor, chills Objective: 12/03/17 12:10 Last Vital Signs Temp Pulse Resp BP Pulse Ox 96.7 F L 76 16 104/65 12/03/17 10:00 12/03/17 10:00 12/03/17 10:00 12/03/17 10:00 Laboratory Tests 12/02/17 12/02/17 12/02/17 06:30 07:00 07:00 WBC 4.9 RBC 4.94 Hgb 16.0 D Hct 49.2 H MCV 99.5 H MCH 32.3 MCHC 32.5 RDW 14.3 Plt Count 228 D MPV 9.7 Sodium 141 Potassium 3.8 Chloride 108 H Carbon Dioxide 26 Anion Gap 7 L BUN 6 L D Creatinine 0.9 Creat Clearance w eGFR > 60 Random Glucose 105 Calcium 8.6 Total Bilirubin 0.7 D AST 33 ALT 28 D Alkaline Phosphatase 74 Total Protein 6.3 L Albumin 3.3 L Urine Color Yellow Urine Appearance Clear Urine pH 5.0 Ur Specific [place] 1.021 Urine Protein Negative Urine Glucose (UA) Negative Urine Ketones Negative Urine Blood Negative Urine Nitrite Negative Urine Bilirubin 2.0 Urine Urobilinogen Negative Ur Leukocyte Esterase Negative RPR Titer HIV 1&2 Antibody Screen HIV P24 Antigen 12/02/17 12/02/17 07:00 07:00 WBC RBC Hgb Hct MCV MCH MCHC RDW Plt Count MPV Sodium Potassium Chloride Carbon Dioxide Anion Gap BUN Creatinine Creat Clearance w eGFR Random Glucose Calcium Total Bilirubin AST ALT Alkaline Phosphatase Total Protein Albumin Urine Color Urine Appearance Urine pH Ur Specific [place] Urine Protein Urine Glucose (UA) Urine Ketones Urine Blood Urine Nitrite Urine Bilirubin Urine Urobilinogen Ur Leukocyte Esterase RPR Titer Nonreactive HIV 1&2 Antibody Screen Negative HIV P24 Antigen Negative Labs noted Assessment: 12/03/17 12:13 Withdrawal symptoms Plan: Continue detox
[2017-12-03] MEDS: ASPIRIN 81 MG CHEWABLE TABLETS PO SCH (13:01)
[2017-12-03] MEDS: PRENATAL VITAMINS W/ FOLIC ACID TABLET (FP) PO SCH (13:01)
[2017-12-03] MEDS: METOPROLOL TARTRATE 50 MG TABLET (FP) PO SCH ×2 (13:01→22:23)
[2017-12-03] MEDS: diazePAM 5 MG TABLET PO SCH ×2 (13:01→22:22)
[2017-12-03] MEDS: QUEtiapine FUMARATE 200 MG TABLET PO SCH (22:23)
[2017-12-03] MEDS: THIAMINE HCL 100 MG TABLET (FP) PO SCH (22:23)
[2017-12-03] MEDS: MIRTAZAPINE 15 MG TABLET (FP) PO SCH (22:23)
[2017-12-04] MEDS: busPIRone HCL 10 MG TABLET (FP) PO SCH (06:16)
[2017-12-04] MEDS: METHOCARBAMOL 750 MG TAB PO SCH (06:16)
[2017-12-04] MEDS: PRENATAL VITAMINS W/ FOLIC ACID TABLET (FP) PO SCH (10:04)
[2017-12-04] MEDS: ASPIRIN 81 MG CHEWABLE TABLETS PO SCH (10:04)
[2017-12-04] MEDS: diazePAM 5 MG TABLET PO SCH (10:04)
[2017-12-04] MEDS: METOPROLOL TARTRATE 50 MG TABLET (FP) PO SCH (10:04)
[2017-12-04 10:18] VITALS: BP 107/61; PULSE 75; TEMP 97.6
[2017-12-05] MEDS ORDERED: diazePAM 5 MG TABLET PO SCH (10:00)
== END 2017-12-04 11:10 | disposition left against medical advice (07) | DRG 770 ==
LOC: YASAS 15:08 → Y3N 16:20
PROVIDERS: ADMIT Internal Medicine; ATTEND Internal Medicine
PROC: HZ2ZZZZ Detoxification Services for Substance Abuse Treatment (ICD-10-PCS; principal; 2017-12-01)
DX: F13.230 Sedative, hypnotic or anxiolytic dependence with withdrawal, uncomplicated (principal); F10.230 Alcohol dependence with withdrawal, uncomplicated; F12.20 Cannabis dependence, uncomplicated; F17.213 Nicotine dependence, cigarettes, with withdrawal; F19.24 Other psychoactive substance dependence with psychoactive substance-induced mood disorder; F31.9 Bipolar disorder, unspecified; F41.9 Anxiety disorder, unspecified; I48.91 Unspecified atrial fibrillation; Z79.82 Long term (current) use of aspirin; M54.5 Low back pain; G89.29 Other chronic pain; F43.10 Post-traumatic stress disorder, unspecified; Z86.69 Personal history of other diseases of the nervous system and sense organs; G47.00 Insomnia, unspecified
CPT/HCPCS: 36415; 80053; 81003; 85027; 86593; 87389; 93005; 93010

== ENCOUNTER 2019-03-05 09:48 | Inpatient (IN) | payer OTHER ==
[2019-03-05 10:15] VITALS: BMI 26.4
--- NOTE | 2019-03-05 10:32 | HP ---
CIWA Score Nausea/Vomitin-No Nausea/No Vomiting Muscle Tremors: 5 Anxiety: 4-Mod. Anxious/Guarded Agitation: 0-Normal Activity Paroxysmal Sweats: No Perspiration Orientation: 3-Disoriented Date>2 days Tacttile Disturbances: 0-None Auditory Disturbances: 0-None Visual Disturbances: 0-None Headache: 0-None Present CIWA-Ar Total Score: 12 - Admission Criteria OASAS Guidelines: Admission for Medically Managed Detox: Requires at least one of the followin. CIWA greater than 12 2. Seizures within the past 24 hours 3. Delirium tremens within the past 24 hours 4. Hallucinations within the past 24 hours 5. Acute intervention needed for co occurring medical disorder 6. Acute intervention needed for co occurring psychiatric disorder 7. Severe withdrawal that cannot be handled at a lower level of care (continued vomiting, continued diarrhea, abnormal vital signs) requiring intravenous medication and/or fluids 8. Admission ROS S - HPI Allergies/Adverse Reactions: Allergies Allergy/AdvReac Type Severity Reaction Status Date / Time No Known Allergies Allergy Verified 03/05/19 10:03 History of Present Illness: pt here requesting detox from etoh use , reports 25-30 beers/day x 10 years , reports daily use from early intervention specialist " as soon as I get up " , reports tremors if not drinking , nausea , had withdrawal seizure 10 years ago , denies blackouts, reports fall with left leg and left ankle frx last winter , ORIF 8 months ago , currently w/ CA< walker, unknown when the next ortho visit is , does not have appt . cannabis - reports occasional use tobacco - denies PMHX : A-fib dx 6 years ago , on Metoprolol , per pt no anticoag except ASA 81 mg PShx : as above Psych : denies meds : Seroquel for insomnia - Ebola screening Have you traveled outside of the country in the last 21 days: No (N) Have you had contact with anyone from an Ebola affected area: No Do you have a fever: No - Review of Systems Constitutional: See HPI EENT: reports: See HPI Respiratory: reports: No Symptoms reported Cardiac: reports: No Symptoms Reported GI: reports: See HPI : reports: No Symptoms Reported Musculoskeletal: reports: Joint Pain (ankle - left), Joint Swelling Integumentary: reports: No Symptoms Reported Neuro: reports: See HPI, Seizure Endocrine: reports: No Symptoms Reported Psychiatric: reports: Orientated x3, Anxious Patient History - Patient Medical History Hx Anemia: No Hx Asthma: No Hx Chronic Obstructive Pulmonary Disease (COPD): No Hx Cancer: No Hx Cardiac Disorders: Yes (A FIB) Hx Congestive Heart Failure: No Hx Hypertension: No Hx Hypercholesterolemia: No Hx Pacemaker: No HX Cerebrovascular Accident: No Hx Seizures: Yes (LAST EPISODE 2011) Hx Dementia: No Hx Diabetes: No Hx Gastrointestinal Disorders: No Hx Liver Disease: No Hx Genitourinary Disorders: No Hx Sexually Transmitted Disorders: No Hx Renal Disease (ESRD): No Hx Thyroid Disease: No Hx Human Immunodeficiency Virus (HIV): No (NEGATIVE HX last 09/10) Hx Hepatitis C: No Hx Depression: No Hx Suicide Attempt: No Hx Bipolar Disorder: Yes Hx Schizophrenia: No - Patient Surgical History Past Surgical History: Yes Hx Neurologic Surgery: No Hx Cataract Extraction: No Hx Cardiac Surgery: No Hx Lung Surgery: Yes (fx RIGHT ribs with pnuemothorax s/p RIGHT chest tube) Hx Breast Surgery: No Hx Breast Biopsy: No Hx Abdominal Surgery: No Hx Appendectomy: No Hx Cholecystectomy: No Hx Genitourinary Surgery: No Hx Section: No Hx Orthopedic Surgery: No Anesthesia Reaction: No - PPD History Date: 08/15/17 Results: 0 MM - Smoking Cessation Smoking history: Former smoker Have you smoked in the past 12 months: No Aproximately how many cigarettes per day: 0 Cigars Per Day: 2 Hx Chewing Tobacco Use: No Initiated information on smoking cessation: No - Substances abused Alcohol Substance route: Oral Frequency: Daily Amount used: 24 oz 15 cans of beer Age of first use: 16 Date of last use: 03/05/19 Family Disease History - Family Disease History Family Disease History: Heart Disease: Father (atrial fibrillation), CA: Mother (lung cancer ), Other: Mother, Brother (alcohol,) Admission Physical Exam BHS - Vital Signs Vital Signs: Vital Signs - 24 hr 03/05/19 10:09 Temperature 100.3 F H Pulse Rate 78 Respiratory 18 Rate Blood Pressure 123/61 - Physical General Appearance: Yes: Mild Distress HEENTM: Yes: EOMI, Hearing grossly Normal, Normocephalic, Normal Voice Respiratory: Yes: Chest Non-Tender, Lungs Clear, Normal Breath Sounds Neck: Yes: No masses,lesions,Nodules, Trachea in good position Cardiology: Yes: Regular Rhythm, Regular Rate, S1, S2 Abdominal: Yes: Normal Bowel Sounds, Non Tender, Soft Genitourinary: Yes: Within Normal Limits Musculoskeletal: Yes: Joint Stiffness (left ankle), Other (limping - uses CAM walker left) Extremities: Yes: Normal Capillary Refill, Pedal Edema (left leg , ankle and pretibially , surgical scarring) Neurological: Yes: Fully Oriented, Motor Strength 5/5, Normal Mood/Affect Integumentary: Yes: Warm - Diagnostic (1) Alcohol dependence with uncomplicated withdrawal Current Visit: Yes Status: Acute (2) Cannabis dependence Current Visit: Yes Status: Chronic Breathalyzer - Breathalyzer Breathalyzer: 0.164 Urine Drug Screen - Test Device Lot number: [id number] Expiration date: 10/24/20 - Control Is test valid?: Yes - Results Drug screen NEGATIVE: No Urine drug screen results: THC-Marijuana Inpatient Rehab Admission - Rehab Decision to Admit Inpatient rehab admission?: No
[2019-03-05] MEDS ORDERED: MENTHOL/PHENOL 1 EACH UD MM PRN (10:43)
[2019-03-05] MEDS ORDERED: MAGNESIUM HYDROX 2400MG/30ML ORAL SUSPENSION 30 ML CUP PO PRN (10:43)
[2019-03-05] MEDS ORDERED: MAGNESIUM CITRATE 300 ML BOTTLE PO PRN (10:43)
[2019-03-05] MEDS ORDERED: IBUPROFEN 400 MG TABLET (FP) PO PRN (10:43)
[2019-03-05] MEDS ORDERED: BISMUTH SUBSALICYLATE 524 MG/30 ML UD PO PRN (10:43)
[2019-03-05] MEDS ORDERED: chlordiazePOXIDE HCL 25 MG CAPSULE PO PRN (10:43)
[2019-03-05] MEDS ORDERED: ACETAMINOPHEN 325 MG TABLET (FP) PO PRN ×2 (10:43)
[2019-03-05] MEDS: chlordiazePOXIDE HCL 25 MG CAPSULE PO SCH ×3 (11:59→22:10)
[2019-03-05 17:05] LABS: HEMATOCRIT 48.9 % (35.4-49); HEMOGLOBIN 16.6 GM/dL (11.7-16.9); MEAN CELL VOLUME 100.1 fl (80-96); MEAN PLT VOLUME 9.3 fl (7.5-11.1); PLATELET COUNT 225 K/MM3 (134-434); RBC 4.88 M/mm3 (4.00-5.60); RDW 15.7 % (11.9-15.9); WHITE BLOOD COUNT 5.7 K/mm3 (4.0-10.0)
[2019-03-05 17:11] LABS: ALBUMIN 3.9 g/dl (3.4-5.0); ALK PHOS 136 U/L (45-117); ANION GAP 11 MMOL/L (8-16); BILIRUBIN,TOTAL 0.7 mg/dL (0.2-1); BLOOD UREA NITROGEN 4 mg/dL (7-18); CALCIUM 8.4 mg/dL (8.5-10.1); CHLORIDE 102 mmol/L (98-107); CO2 25 mmol/L (21-32); CREATININE 0.8 mg/dL (0.55-1.3); GLUCOSE,RANDOM 100 mg/dL (74-106); POTASSIUM 3.8 mmol/L (3.5-5.1); SGOT/AST 204 U/L (15-37); SGPT/ALT 123 U/L (13-61); SODIUM 138 mmol/L (136-145)
[2019-03-05] MEDS: METOPROLOL TARTRATE 25 MG TABLET (FP) PO SCH (22:10)
[2019-03-05] MEDS: THIAMINE HCL 100 MG TABLET (FP) PO SCH (22:10)
[2019-03-05] MEDS: MELATONIN 5 MG TABLETS PO PRN (22:10)
[2019-03-05] MEDS ORDERED: QUEtiapine FUMARATE 50 MG TABLET PO ONE (22:45)
[2019-03-06] MEDS: chlordiazePOXIDE HCL 25 MG CAPSULE PO SCH ×4 (05:44→22:02)
[2019-03-06] MEDS: METOPROLOL TARTRATE 25 MG TABLET (FP) PO SCH ×2 (10:08→22:02)
[2019-03-06] MEDS: ASPIRIN 81 MG CHEWABLE TABLETS PO SCH (10:08)
[2019-03-06] MEDS: PRENATAL VITAMINS W/ FOLIC ACID TABLET (FP) PO SCH (10:08)
[2019-03-06] MEDS ORDERED: METHOCARBAMOL 750 MG TABLET PO PRN (10:18)
--- NOTE | 2019-03-06 13:35 | CONSULT ---
[facility] Psychiatric Consult - Data Date of interview: 03/06/19 Admission source: [facility] Identifying data: Readmission to [facility] for this 48 y/o male self- referred for detoxification (alcohol, cannabis). Examined at [address] [place] [address]. Patient is single (common-law status), no children, domiciled, unemployed, disabled ( recent fracture of left leg) and supported by spouse. Substance Abuse History: Confirmed by the patient in this session. Detailsin current [facility] report : Smoking history: Former smoker. Have you smoked in the past 12 months: No. Aproximately how many cigarettes per day: 0. Cigars Per Day: 2. Hx Chewing Tobacco Use: No. Initiated information on smoking cessation : No. - Substances abused. Alcohol. Substance route: Oral. Frequency: Daily. Amount used: 24 oz 15 cans of beer. Age of first use: 16. Date of last use: 03/05/19 Medical History: Remarkable for a recent history (2017) of fracture of left leg + ankle (hardware in situ), hypertension and atrial fibrillation. Distant history of pneumothorax, coma, fractured ribs from a job-related accident (fall from a seven stories high scaffold in 2006). Psychiatric History: Patient denies history of psychiatric hospitalizations. Mr Chacon indicates that he has no connection with psychiatric OPD care providers. Has been prescribed remeron 30 mg/hs + seroquel 200 mg/hs + buspar 15 mg po tid. Not taken for months. atient denies history of suicide attempts. Physical/Sexual Abuse/Trauma History: No history of abuse. Additional Comment: Urine drug screen results: THC-Marijuana. Noted. Mental Status Exam - Mental Status Exam Alert and Oriented to: Time, Place, Person Cognitive Function: Good Patient Appearance: Well Groomed (left leg in an orthopedic boot) Mood: Anxious, Apprehensive Affect: Appropriate, Normal Range Patient Behavior: Fatigued, Appropriate, Cooperative Speech Pattern: Clear, Appropriate Voice Loudness: Normal Thought Process: Intact, Goal Oriented Thought Disorder: Not Present Hallucinations: Denies Suicidal Ideation: Denies Homicidal Ideation: Denies Insight/Judgement: Fair Sleep: Poorly, Difficulty falling asleep Appetite: Good Muscle strength/Tone: Normal Gait/Station: Normal Psychiatric Findings - Problem List ([place] 1, 2,3) (1) Alcohol dependence with uncomplicated withdrawal Current Visit: Yes Status: Acute (2) Cannabis dependence Current Visit: Yes Status: Chronic (3) Drug-induced mood disorder Current Visit: Yes Status: Chronic (4) Insomnia Current Visit: Yes Status: Chronic (5) Non-compliance Current Visit: Yes Status: Chronic - Initial Treatment Plan Initial Treatment Plan: Psychoeducation. Sleep hygiene. Detoxification. Support. Relapse prevention discussed with the patient. AA meetings. Medications : seroquel 100 mg po hs + buspar 5 mg po tid + remeron 15 mg po hs. Side effects/benefits of these medications are discussed with the patient. Consent (verbal) given to MD. Contact made with [facility] at [phone] : no refill since november 2017. Observation.
[2019-03-06] MEDS: busPIRone HCL 5 MG TABLET PO SCH ×2 (15:58→22:03)
--- NOTE | 2019-03-06 17:21 | PN ---
[facility] CIWA - CIWA Score Nausea/Vomitin-No Nausea/No Vomiting Muscle Tremors: 3 Anxiety: 3 Agitation: 2 Paroxysmal Sweats: No Perspiration Orientation: 0-Oriented Tacttile Disturbances: 2-Mild Itch/Numbness/Burn Auditory Disturbances: 0-None Visual Disturbances: 2-Mild Sensitivity Headache: 0-None Present CIWA-Ar Total Score: 12 BHS Progress Note (SOAP) Subjective: Tremors, Diarrhea, Fatigue, Body Aches, Interrupted Sleep. Objective: PATIENT A & O X 3, OBSERVED AMBULATING ON UNIT. IN NO ACUTE DISTRESS. 03/06/19 17:22 Vital Signs Temperature 97.6 F 03/06/19 13:23 Pulse Rate 100 H 03/06/19 13:23 Respiratory Rate 18 03/06/19 13:23 Blood Pressure 106/73 03/06/19 13:23 O2 Sat by Pulse Oximetry (%) Laboratory Tests 03/05/19 03/05/19 03/05/19 12:20 12:20 12:20 WBC 5.7 RBC 4.88 Hgb 16.6 Hct 48.9 MCV 100.1 H MCH 34.0 H MCHC 34.0 RDW 15.7 Plt Count 225 MPV 9.3 Sodium 138 Potassium 3.8 Chloride 102 Carbon Dioxide 25 Anion Gap 11 BUN 4 L Creatinine 0.8 Creat Clearance w eGFR 102.75 Random Glucose 100 Calcium 8.4 L Total Bilirubin 0.7 AST 204 H ALT 123 H Alkaline Phosphatase 136 H Total Protein 8.0 Albumin 3.9 RPR Titer Nonreactive LABS NOTED. Assessment: 03/06/19 17:23 WITHDRAWAL SYMPTOMS. Plan: CONTINUE DETOX. INCREASE DAILY PO FLUID INTAKE. PRN ROBAXIN PO FOR BODY ACHES / MUSCLE SPASMS. HFP TOMORROW AM FOR ELEVATED ADMISSION LIVER ENZYMES VALUES.
[2019-03-06] MEDS: MAG HYDROX/AL HYDROX/SIMETH 30 ML UNIT-DOSE CUP PO PRN (19:12)
[2019-03-06] MEDS ORDERED: MIRTAZAPINE 15 MG TABLET (FP) PO SCH (22:00)
[2019-03-06] MEDS: QUEtiapine FUMARATE 100 MG TABLET (FP) PO SCH (22:02)
[2019-03-06] MEDS: THIAMINE HCL 100 MG TABLET (FP) PO SCH (22:03)
[2019-03-06] MEDS: MELATONIN 5 MG TABLETS PO PRN (22:04)
[2019-03-06] MEDS: METHOCARBAMOL 750 MG TABLET PO PRN (22:16)
[2019-03-07] MEDS: chlordiazePOXIDE HCL 25 MG CAPSULE PO SCH (06:09)
[2019-03-07] MEDS: busPIRone HCL 5 MG TABLET PO SCH ×3 (06:34→22:18)
[2019-03-07] MEDS: ASPIRIN 81 MG CHEWABLE TABLETS PO SCH (10:16)
[2019-03-07] MEDS: PRENATAL VITAMINS W/ FOLIC ACID TABLET (FP) PO SCH (10:16)
[2019-03-07] MEDS: METHOCARBAMOL 750 MG TABLET PO PRN ×2 (10:16→22:21)
[2019-03-07] MEDS: METOPROLOL TARTRATE 25 MG TABLET (FP) PO SCH ×2 (10:16→22:18)
[2019-03-07] MEDS: chlordiazePOXIDE HCL 10 MG CAPSULE PO SCH ×3 (10:16→22:45)
[2019-03-07] MEDS ORDERED: chlordiazePOXIDE HCL 10 MG CAPSULE PO PRN (11:00)
[2019-03-07 11:04] LABS: ALBUMIN 2.9 g/dl (3.4-5.0); BILIRUBIN,DIRECT 0.3 mg/dL (0.0-0.2); BILIRUBIN,TOTAL 0.8 mg/dL (0.2-1); TOT PROT 5.9 g/dl (6.4-8.2)
--- NOTE | 2019-03-07 13:17 | PN ---
[facility] CIWA - CIWA Score Nausea/Vomitin-No Nausea/No Vomiting Muscle Tremors: 3 Anxiety: 3 Agitation: 2 Paroxysmal Sweats: No Perspiration Orientation: 0-Oriented Tacttile Disturbances: 2-Mild Itch/Numbness/Burn Auditory Disturbances: 0-None Visual Disturbances: 1-Very Mild Sensitivity Headache: 0-None Present CIWA-Ar Total Score: 11 BHS Progress Note (SOAP) Subjective: Tremors, Diarrhea, Body Aches, Anxious, Interrupted Sleep. Objective: PATIENT A & O X 3, OBSERVED AMBULATING ON UNIT. IN NO ACUTE DISTRESS. 03/07/19 13:18 Vital Signs Temperature 96.9 F L 03/07/19 09:31 Pulse Rate 97 H 03/07/19 09:31 Respiratory Rate 18 03/07/19 09:31 Blood Pressure 102/71 03/07/19 09:31 O2 Sat by Pulse Oximetry (%) Laboratory Tests 03/05/19 03/05/19 03/05/19 12:20 12:20 12:20 WBC 5.7 RBC 4.88 Hgb 16.6 Hct 48.9 MCV 100.1 H MCH 34.0 H MCHC 34.0 RDW 15.7 Plt Count 225 MPV 9.3 Sodium 138 Potassium 3.8 Chloride 102 Carbon Dioxide 25 Anion Gap 11 BUN 4 L Creatinine 0.8 Creat Clearance w eGFR 102.75 Random Glucose 100 Calcium 8.4 L Total Bilirubin 0.7 Direct Bilirubin AST 204 H ALT 123 H Alkaline Phosphatase 136 H Total Protein 8.0 Albumin 3.9 RPR Titer Nonreactive 03/07/19 07:30 WBC RBC Hgb Hct MCV MCH MCHC RDW Plt Count MPV Sodium Potassium Chloride Carbon Dioxide Anion Gap BUN Creatinine Creat Clearance w eGFR Random Glucose Calcium Total Bilirubin 0.8 Direct Bilirubin 0.3 H AST 47 H ALT 59 Alkaline Phosphatase 131 H Total Protein 5.9 L Albumin 2.9 L RPR Titer LABS NOTED. RESULTS OF HFP NOTED. SIGNIFICANT IMPROVEMENT NOTED IN REPEAT AST AND ALT LEVELS. SLIGHT IMPROVEMENT NOTED IN AP LEVEL. 03/07/19 13:18 Assessment: 03/07/19 13:19 WITHDRAWAL SYMPTOMS. ELEVATED LIVER ENZYMES. Plan: CONTINUE DETOX. INCREASE DAILY PO FLUID INTAKE. PRN ROBAXIN FOR BODY ACHES / MUSCLE SPASMS.
[2019-03-07] MEDS: MAG HYDROX/AL HYDROX/SIMETH 30 ML UNIT-DOSE CUP PO PRN (19:12)
[2019-03-07] MEDS: MELATONIN 5 MG TABLETS PO PRN (22:18)
[2019-03-07] MEDS: QUEtiapine FUMARATE 100 MG TABLET (FP) PO SCH (22:18)
[2019-03-07] MEDS: THIAMINE HCL 100 MG TABLET (FP) PO SCH (22:18)
[2019-03-08] MEDS: busPIRone HCL 5 MG TABLET PO SCH ×3 (05:13→22:06)
[2019-03-08] MEDS: chlordiazePOXIDE HCL 10 MG CAPSULE PO SCH ×3 (05:14→22:06)
[2019-03-08] MEDS: ASPIRIN 81 MG CHEWABLE TABLETS PO SCH (10:09)
[2019-03-08] MEDS: PRENATAL VITAMINS W/ FOLIC ACID TABLET (FP) PO SCH (10:09)
[2019-03-08] MEDS: METOPROLOL TARTRATE 25 MG TABLET (FP) PO SCH ×2 (10:09→22:06)
[2019-03-08] MEDS: METHOCARBAMOL 750 MG TABLET PO PRN ×2 (10:10→22:05)
--- NOTE | 2019-03-08 11:52 | PN ---
S CIWA - CIWA Score Nausea/Vomitin-Mild Nausea/No Vomiting Muscle Tremors: 1-None Visible, but [place] Anxiety: 2 Agitation: 2 Paroxysmal Sweats: 1-Minimal Palms Moist Orientation: 0-Oriented Tacttile Disturbances: 0-None Auditory Disturbances: 0-None Visual Disturbances: 0-None Headache: 1-Very Mild CIWA-Ar Total Score: 8 BHS Progress Note (SOAP) Subjective: left lower extremity hard cast intact ambulating on hallway steady gait left leg trauma x 3 months ago metal removed 1 month ago current full had cast +2 pulses of popteal elevation of the left leg when resting order cane for ambulation Objective: 03/08/19 11:54 Vital Signs Temperature 97.6 F 03/08/19 09:30 Pulse Rate 81 03/08/19 09:30 Respiratory Rate 18 03/08/19 09:30 Blood Pressure 104/64 03/08/19 09:30 O2 Sat by Pulse Oximetry (%) Laboratory Last Values WBC 5.7 K/mm3 (4.0-10.0) 03/05/19 12:20 RBC 4.88 M/mm3 (4.00-5.60) 03/05/19 12:20 Hgb 16.6 GM/dL (11.7-16.9) 03/05/19 12:20 Hct 48.9 % (35.4-49) 03/05/19 12:20 MCV 100.1 fl (80-96) H 03/05/19 12:20 MCH 34.0 pg (25.7-33.7) H 03/05/19 12:20 MCHC 34.0 g/dl (32.0-35.9) 03/05/19 12:20 RDW 15.7 % (11.9-15.9) 03/05/19 12:20 Plt Count 225 K/MM3 (134-434) 03/05/19 12:20 MPV 9.3 fl (7.5-11.1) 03/05/19 12:20 Sodium 138 mmol/L (136-145) 03/05/19 12:20 Potassium 3.8 mmol/L (3.5-5.1) 03/05/19 12:20 Chloride 102 mmol/L (98-107) 03/05/19 12:20 Carbon Dioxide 25 mmol/L (21-32) 03/05/19 12:20 Anion Gap 11 MMOL/L (8-16) 03/05/19 12:20 BUN 4 mg/dL (7-18) L 03/05/19 12:20 Creatinine 0.8 mg/dL (0.55-1.3) 03/05/19 12:20 Creat Clearance w eGFR 102.75 (>60) 03/05/19 12:20 Random Glucose 100 mg/dL (74-106) 03/05/19 12:20 Calcium 8.4 mg/dL (8.5-10.1) L 03/05/19 12:20 Total Bilirubin 0.8 mg/dL (0.2-1) 03/07/19 07:30 Direct Bilirubin 0.3 mg/dL (0.0-0.2) H 03/07/19 07:30 AST 47 U/L (15-37) H 03/07/19 07:30 ALT 59 U/L (13-61) 03/07/19 07:30 Alkaline Phosphatase 131 U/L (45-117) H 03/07/19 07:30 Total Protein 5.9 g/dl (6.4-8.2) L 03/07/19 07:30 Albumin 2.9 g/dl (3.4-5.0) L 03/07/19 07:30 RPR Titer Nonreactive (NONREACTIVE) 03/05/19 12:20 lab noted Assessment: 03/08/19 11:55 withdrawal sx Plan: continue detox
[2019-03-08] MEDS: CALCIUM 250MG/VIT-D 125 UNITS 1 COMBO TABLET PO SCH ×2 (14:00→22:06)
[2019-03-08] MEDS: MAG HYDROX/AL HYDROX/SIMETH 30 ML UNIT-DOSE CUP PO PRN (18:05)
[2019-03-08] MEDS: QUEtiapine FUMARATE 100 MG TABLET (FP) PO SCH (22:06)
[2019-03-08] MEDS: THIAMINE HCL 100 MG TABLET (FP) PO SCH (22:06)
[2019-03-08] MEDS: MELATONIN 5 MG TABLETS PO PRN (22:07)
[2019-03-09 05:54] VITALS: BP 119/84; PULSE 54; TEMP 98.2
[2019-03-09] MEDS: busPIRone HCL 5 MG TABLET PO SCH (06:45)
--- NOTE | 2019-03-09 08:40 | DS ---
[facility] Detox Discharge Summary Admission Date: 03/05/19 Discharge Date: 03/09/19 - History Present History: Alcohol Dependence Additional Comments: 48 years old male admitted on 03/05/19 for alcohol withdrawal stabilization completed detox regimen today left detox unit around 0705 am today speech writer does not have the opportunity to assess and evaluate the patient prior to the patient leaving the detox unit Pertinent Past History: based on yesterday's conversation with the patient that the patient agrees to follow up with orthopedic provider - Physical Exam Results Vital Signs: Vital Signs Temperature 98.2 F 03/09/19 05:54 Pulse Rate 54 L 03/09/19 05:54 Respiratory Rate 18 03/09/19 05:54 Blood Pressure 119/84 03/09/19 05:54 O2 Sat by Pulse Oximetry (%) Pertinent Admission Physical Exam Findings: alcohol withdrawal sx Laboratory Last Values WBC 5.7 K/mm3 (4.0-10.0) 03/05/19 12:20 RBC 4.88 M/mm3 (4.00-5.60) 03/05/19 12:20 Hgb 16.6 GM/dL (11.7-16.9) 03/05/19 12:20 Hct 48.9 % (35.4-49) 03/05/19 12:20 MCV 100.1 fl (80-96) H 03/05/19 12:20 MCH 34.0 pg (25.7-33.7) H 03/05/19 12:20 MCHC 34.0 g/dl (32.0-35.9) 03/05/19 12:20 RDW 15.7 % (11.9-15.9) 03/05/19 12:20 Plt Count 225 K/MM3 (134-434) 03/05/19 12:20 MPV 9.3 fl (7.5-11.1) 03/05/19 12:20 Sodium 138 mmol/L (136-145) 03/05/19 12:20 Potassium 3.8 mmol/L (3.5-5.1) 03/05/19 12:20 Chloride 102 mmol/L (98-107) 03/05/19 12:20 Carbon Dioxide 25 mmol/L (21-32) 03/05/19 12:20 Anion Gap 11 MMOL/L (8-16) 03/05/19 12:20 BUN 4 mg/dL (7-18) L 03/05/19 12:20 Creatinine 0.8 mg/dL (0.55-1.3) 03/05/19 12:20 Creat Clearance w eGFR 102.75 (>60) 03/05/19 12:20 Random Glucose 100 mg/dL (74-106) 03/05/19 12:20 Calcium 8.4 mg/dL (8.5-10.1) L 03/05/19 12:20 Total Bilirubin 0.8 mg/dL (0.2-1) 03/07/19 07:30 Direct Bilirubin 0.3 mg/dL (0.0-0.2) H 03/07/19 07:30 AST 47 U/L (15-37) H 03/07/19 07:30 ALT 59 U/L (13-61) 03/07/19 07:30 Alkaline Phosphatase 131 U/L (45-117) H 03/07/19 07:30 Total Protein 5.9 g/dl (6.4-8.2) L 03/07/19 07:30 Albumin 2.9 g/dl (3.4-5.0) L 03/07/19 07:30 RPR Titer Nonreactive (NONREACTIVE) 03/05/19 12:20 lab noted - Treatment Hospital Course: Detox Protocol Followed, Detoxed Safely, Responded well, Discharged Condition Good, Rehab Referral Accepted Patient has Accepted a Rehab Referral to: as per counselor arranagment - Medication Discharge Medications: Ambulatory Orders Aspirin [ASA -] 81 mg PO DAILY #30 tab.chew 10/08/15 Methocarbamol [Robaxin -] 750 mg PO TID 01/29/16 Mirtazapine [Remeron -] 30 mg PO HS #30 tablet 08/14/17 Metoprolol Tartrate [Lopressor -] 25 mg PO BID 03/05/19 Quetiapine Fumarate [Seroquel -] 100 mg PO HS 03/05/19 Buspirone HCl [Buspar -] 5 mg PO TID #60 tablet 03/07/19 Quetiapine Fumarate [Seroquel] 100 mg PO HS #30 tablet 03/07/19 - Diagnosis (1) Alcohol dependence with uncomplicated withdrawal Status: Acute (2) Nicotine dependence Status: Acute Qualifiers: Nicotine product type: cigarettes Substance use status: in withdrawal Qualified Code(s): F17.213 - Nicotine dependence, cigarettes, with withdrawal (3) Hypertension Status: Chronic Qualifiers: Hypertension type: essential hypertension Qualified Code(s): I10 - Essential (primary) hypertension (4) Anxiety disorder Status: Suspected Qualifiers: Anxiety disorder type: generalized anxiety disorder Qualified Code(s): F41.1 - Generalized anxiety disorder - AMA Did Patient Leave Against Medical Advice: No
== END 2019-03-09 07:05 | disposition home or self-care (01) | DRG 775 ==
LOC: YASAS 09:48 → Y3N 10:54
PROVIDERS: ADMIT Surgery; ATTEND Surgery
PROC: HZ2ZZZZ Detoxification Services for Substance Abuse Treatment (ICD-10-PCS; principal; 2019-03-05)
DX: F10.230 Alcohol dependence with withdrawal, uncomplicated (principal); F12.20 Cannabis dependence, uncomplicated; F17.213 Nicotine dependence, cigarettes, with withdrawal; F31.9 Bipolar disorder, unspecified; F19.24 Other psychoactive substance dependence with psychoactive substance-induced mood disorder; F41.1 Generalized anxiety disorder; I10 Essential (primary) hypertension; I48.91 Unspecified atrial fibrillation; Z79.82 Long term (current) use of aspirin; M62.838 Other muscle spasm; R94.5 Abnormal results of liver function studies; G47.00 Insomnia, unspecified; Z86.69 Personal history of other diseases of the nervous system and sense organs
CPT/HCPCS: 36415; 80053; 80076; 85027; 86593